=== PATIENT | male | born 1980 | race American Indian/Alaskan Native ===

== ENCOUNTER 2019-05-22 22:27 | Emergency (ER) | payer SELFPAY ==
[2019-05-22] MEDS ORDERED: ACETAMINOPHEN 325 MG TAB PO ONE (22:45)
[2019-05-22 22:46] VITALS: BP 138/84
== END 2019-05-23 02:06 | disposition left against medical advice (07) ==
LOC: ED 22:27
DX: R05 Cough (principal); R50.9 Fever, unspecified; Z53.21 Procedure and treatment not carried out due to patient leaving prior to being seen by health care provider